=== PATIENT | male | born 1930 | race Caucasian/White ===

== ENCOUNTER 2016-08-08 09:58 | Outpatient (RCR) | payer MEDICARE, BC ==
[2016-08-01 14:18] LABS: BASOPHILS # (AUTO) 0.1 10^3/uL (0.0-0.1); BASOPHILS % (AUTO) 1 % (0-10); EOSINOPHILS # (AUTO) 0.1 10^3/uL (0.0-0.3); EOSINOPHILS % (AUTO) 1 % (0-10); LYMPHOCYTES # (AUTO) 1.4 X 10^3 (1.0-4.0); LYMPHOCYTES % (AUTO) 22 % (12-44); MEAN CORPUSCULAR HEMOGLOBIN 33 PG (25-34); MEAN CORPUSCULAR HGB CONC 34 G/DL (32-36); MEAN CORPUSCULAR VOLUME 95 FL (80-99); MEAN PLATELET VOLUME 10.3 FL (7.4-10.4); MONOCYTES # (AUTO) 0.8 X 10^3 (0.0-1.0); MONOCYTES % (AUTO) 12 % (0-12); NEUTROPHILS % (AUTO) 64 % (42-75); PLATELET COUNT 120 10^3/uL (130-400); RED BLOOD COUNT 4.05 10^6/uL (4.35-5.85); WHITE BLOOD COUNT 6.2 10^3/uL (4.3-11.0)
[2016-08-01 15:30] LABS: ALANINE AMINOTRANSFERASE 13 U/L (0-55); ALBUMIN 4.3 G/DL (3.2-4.5); ANION GAP 7 MMOL/L (5-14); ASPARTATE AMINO TRANSFERASE 22 U/L (5-34); BLOOD UREA NITROGEN 19 MG/DL (7-18); BUN/CREATININE RATIO 18; CALCIUM 9.3 MG/DL (8.5-10.1); CARBON DIOXIDE 28 MMOL/L (21-32); CHLORIDE 104 MMOL/L (98-107); CREATININE SERUM 1.05 MG/DL (0.60-1.30); GFR ESTIMATED > 60; GLUCOSE 76 MG/DL (70-105); POTASSIUM 3.6 MMOL/L (3.6-5.0); SODIUM 139 MMOL/L (135-145); TOTAL PROTEIN 7.3 G/DL (6.4-8.2)
[~2016-08-08 09:58] MED LIST: AC325T PO; ACHD5005 PO; ASPI-892 PO; CARV3.12 PO; CEFU500T5 PO; CEPH500C PO; CLD600T PO; DIAZ5TAB3 PO; DILT180C PO; FNST5T PO; FRSM20T PO; GLUC10002 PO; GLUC500C2 PO; HYDR-3583 PO; LORA10TA7 PO; MULT-608 PO; WARF7.5T PO; WRF2.5T PO; WRF5T PO
== END 2016-10-30 | disposition home or self-care (01) ==
LOC: ONC 09:58
PROVIDERS: ATTEND Internal Medicine Hematology & Oncology
DX: Z08 Encounter for follow-up examination after completed treatment for malignant neoplasm (principal); Z85.038 Personal history of other malignant neoplasm of large intestine; I48.91 Unspecified atrial fibrillation; I10 Essential (primary) hypertension; E78.5 Hyperlipidemia, unspecified; N40.0 Benign prostatic hyperplasia without lower urinary tract symptoms; Z79.899 Other long term (current) drug therapy
CPT/HCPCS: 36415; 80053; 82378; 85025

== ENCOUNTER 2016-11-07 06:42 | Outpatient (CLI) | payer MEDICARE, BC ==
[~2016-11-07] VITALS: Ht 172.7 cm; Wt 77.1 kg
[2016-11-07] MEDS ORDERED: DOCU100T7 PO (14:39)
== END 2016-11-07 14:45 ==
LOC: PREOP 06:42
PROVIDERS: ATTEND Surgery
DX: Z01.818 Encounter for other preprocedural examination (principal); Z12.11 Encounter for screening for malignant neoplasm of colon

== ENCOUNTER 2016-11-11 09:54 | Day surgery (SDC) | payer MEDICARE, BC ==
[~2016-11-11] VITALS: Ht 172.7 cm; Wt 77.1 kg
[~2016-11-11 09:54] MED LIST changes: +DOCU100T7 PO
[2016-11-11 10:00] VITALS: BP 134/77
[2016-11-11] MEDS ORDERED: MIDAZOLAM 2 MG/2 ML (VERSED) VIAL IVP PRN (10:15)
[2016-11-11] MEDS: NS IV 500 ML 500 ML IV PRN ×2 (11:00→12:03)
--- NOTE | 2016-11-11 11:11 | History & Physicial ---
History of Present Illness History of Present Illness Reason for visit/HPI to undergo surveillance colonoscopy. 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 Date of Admission Date Seen by Provider: Nov 11, 2016 Time Seen by Provider: 11:10 I consulted on this patient on 11/11/16 11:10 Attending Physician Alea Daniel MD Admitting Physician Sharon Puentes DO Consult Allergies and Home Medications Allergies Coded Allergies: meperidine (Verified Allergy, Unknown, 01/10/06) morphine (Verified Allergy, Unknown, 01/10/06) Home Medications Acetaminophen 325 Mg Tablet, 650 MG PO Q4H PRN, (Reported) PRN FOR PAIN Aspirin 81 Mg Tablet.dr, 81 MG PO DAILY, (Reported) Calcium Carbonate/Vitamin D3 1 Tab Tablet, 1 TAB PO DAILY, (Reported) Carvedilol 3.125 Mg Tablet, 3.125 MG PO BID, (Reported) Diltiazem Hcl 180 Mg Cap.sr.24h, 180 MG PO BID, (Reported) Docusate Sodium 100 Mg Tablet, 100 MG PO DAILY, (Reported) Finasteride 5 Mg Tab, 5 MG PO DAILY, (Reported) Furosemide 20 Mg Tab, 20 MG PO DAILY, (Reported) Glucosamine Sulfate 2KCL 1,000 Mg Tablet, 1,000 MG PO DAILY, (Reported) Multivitamins 1 Tab Tablet, 1 TAB PO DAILY, (Reported) Warfarin Sod 2.5 Mg Tab, 7.5 MG PO SAT AND FRI., (Reported) 7.5 mg on fri and friday Warfarin Sodium 5 Mg Tablet, 5 MG PO , (Reported) Past Krzkzpw-Xmxfjd-Hmbmou Hx Patient Social History Employed/Student: retired Alcohol Use: Rarely Uses Recreational Drug Use: No Smoking Status: Never a Smoker Recent Foreign Travel: No Contact w/other who traveled: No Recent Hopitalizations: Yes Recent Infectious Disease Expo: No Immunizations Up To Date Date of Pneumonia Vaccine: Jan 04, 2012 Seasonal Allergies Seasonal Allergies: No Surgeries HX Surgeries: Yes (COLON RESECTION, HERNIA REPAIR, PACEMAKER PLACEMENT) Surgeries: Gallbladder Respiratory Hx Respiratory Disorders: No Cardiovascular Hx Cardiovascular Disorders: Yes (pacemaker) Cardiac Disorders: Irregular Heartbeat Neurological Hx Neurological Disorders: Yes Neurological Disorders: TIA Reproductive System Hx Reproductive Disorders: No Genitourinary Hx Genitourinary Disorders: No Gastrointestinal Hx Gastrointestinal Disorders: Yes (HX COLON CANCER, HERNIA) Musculoskeletal Hx Musculoskeletal Disorders: No Endocrine Hx Endocrine Disorders: No HEENT HX ENT Disorders: Yes (partial denture) Cancer Hx Cancer: Yes Cancer: Colon Psychosocial Hx Psychiatric Problems: No Integumentary HX Skin/Integumentary Disorder: No Blood Transfusions Hx Blood Disorders: No Constitutional: no symptoms reported EENTM: no symptoms reported Respiratory: no symptoms reported Gastrointestinal: no symptoms reported Genitourinary: no symptoms reported Musculoskeletal: joint pain Skin: no symptoms reported Psychiatric/Neurological: No Symptoms Reported Physical Exam Vital Signs Vital Sign - Last 12Hours 11/11/16 10:00 Temp 97.2 Pulse 72 Resp 16 B/P (MAP) 134/77 Pulse Ox 96 O2 Delivery Room Air Capillary Refill : General Appearance: No Apparent Distress HEENT: Normal ENT Inspection Neck: Normal Inspection Respiratory: Lungs Clear Cardiovascular: Regular Rate, Rhythm Gastrointestinal: Non Tender, Soft Rectal: Deferred Back: Normal Inspection Extremity: Normal Inspection Neurologic/Psychiatric: Alert, Oriented x3 Skin: Warm/Dry Assessment/Plan Assessment and Plan previous right hemicolectomy to manage a carcinoma. For surveillance colonoscopy Problems: ALEA DANIEL MD Nov 11, 2016 11:11 am
--- NOTE | 2016-11-11 11:11 | Conscious Sedation/ASA ---
Conscious Sedation Pre-Proced Time Reviewed: 11:11 ASA Class: 2 Airway Mallampati Classification: ([place] appropriate class) I. II. III, IV Lungs Heart ASA score ASA 1: a normal healthy patient ASA 2: a patient with a mild systemic disease (mid diabetes, controlled hypertension, obesity ASA 3: a patient with a severe systemic disease that limits activity (angina , COPD, prior Myocardial infarction) ASA 4: a patient with an incapacitating disease that is a constant threat to life (CHF, renal failure) ASA 5: a moribund patient not expected to survive 24 hrs. (ruptured aneurysm) ASA 6: a declared brain patient whose organs are being harvested. For emergent operations, add the letter E after the classification Grade 1 Sedation Plan: Discussed options with patient/fam Note The patient is an appropriate candidate to undergo the planned procedure, sedation, and anesthesia. The patient immediately re-assessed prior to indication. ALEA PATEL MD Nov 11, 2016 11:11 am
[2016-11-11] MEDS ORDERED: fentaNYL INJECTION 100 MCG/2 ML AMP ONE (11:27)
[2016-11-11] MEDS ORDERED: MIDAZOLAM 2 MG/2 ML (VERSED) VIAL ONE ×3 (11:28)
[2016-11-11] MEDS: fentaNYL INJECTION 100 MCG/2 ML AMP IVP PRN ×2 (11:40→11:45)
[2016-11-11 12:15] VITALS: BP 113/78
--- NOTE | 2016-11-11 12:16 | Endo Procedure Record ---
Endo Procedure Report Date of Procedure Nov 11, 2016 Surgeon (s) ALEA PATEL MD Post Procedure/Op Diagnosis sigmoid diverticulosis Procedure Performed colonoscopy to the ileocolic anastomosis Description of Procedure Anesthesia Type: Conscious Sedation Specimen(s) collected/removed none Description of the Procedure Indication for procedure: This gentleman came in for surveillance colonoscopy. In 1994, he had undergone right hemicolectomy to manage a carcinoma and has remained recurrence free so far. Informed consent was obtained after reviewing the procedure in detail. Description of the procedure: He was placed in left lateral decubitus position and his vital signs were monitored. Conscious sedation was achieved using Versed and fentanyl. Digital rectal examination was unremarkable. The colonoscope was then introduced in the rectum and advanced to the ileocolic anastomosis. The scope was then withdrawn slowly and the mucosa examined in a systematic fashion. Findings: Quite diffuse diverticulosis. No polyps were found. He tolerated the procedure well and was taken back to the nursing area in a stable condition Impression:Surveillance colonoscopy. Previous right colectomy for carcinoma. No recurrence. No polyps. Diffuse diverticulosis. Copies To: TAQUERIA PHELPS XAVIER M MD Nov 11, 2016 12:16 pm
--- NOTE | 2016-11-11 12:17 | Discharge Inst-Simple/Standard ---
Discharge Inst-Standard Discharge Medications New, Converted or Re-Newed RX: Other Patient Instructions/Follow Up Plan of Care/Instructions/FU: follow-up with his primary as needed Activity as Tolerated: Yes Discharge Diet: No Restrictions ALEA PATEL MD Nov 11, 2016 12:17 pm
[2016-11-11 13:10] VITALS: BP 134/80
[2016-11-11 13:23] VITALS: BP 134/80
== END 2016-11-11 13:23 | disposition home or self-care (01) ==
LOC: ENDO 09:54
PROVIDERS: ATTEND Surgery
DX: Z12.11 Encounter for screening for malignant neoplasm of colon (principal); Z85.038 Personal history of other malignant neoplasm of large intestine; K57.30 Diverticulosis of large intestine without perforation or abscess without bleeding; Z98.0 Intestinal bypass and anastomosis status; I49.9 Cardiac arrhythmia, unspecified; Z95.0 Presence of cardiac pacemaker; Z86.73 Personal history of transient ischemic attack (TIA), and cerebral infarction without residual deficits; Z79.01 Long term (current) use of anticoagulants; Z79.899 Other long term (current) drug therapy

== ENCOUNTER → 2017-07-29 | Outpatient (CLI) | payer OTHER ==
[2017-07-29 16:01] LABS: INR 1.7 (0.8-1.4); PROTHROMBIN TIME PATIENT 20.3 SEC (12.2-14.7)
== END ==
LOC: LAB 12:17
PROVIDERS: ATTEND Family Medicine
DX: Z51.81 Encounter for therapeutic drug level monitoring (principal); Z79.01 Long term (current) use of anticoagulants
CPT/HCPCS: 36415; 85610

== ENCOUNTER 2017-08-07 09:45 | Outpatient (RCR) | payer BC, MEDICARE, OTHER ==
[2017-07-29 12:25] LABS: BASOPHILS # (AUTO) 0.1 10^3/uL (0.0-0.1); BASOPHILS % (AUTO) 1 % (0-10); EOSINOPHILS # (AUTO) 0.1 10^3/uL (0.0-0.3); EOSINOPHILS % (AUTO) 1 % (0-10); HEMATOCRIT 38 % (40-54); LYMPHOCYTES % (AUTO) 19 % (12-44); MEAN CORPUSCULAR HEMOGLOBIN 33 PG (25-34); MEAN CORPUSCULAR HGB CONC 34 G/DL (32-36); MEAN CORPUSCULAR VOLUME 96 FL (80-99); MEAN PLATELET VOLUME 10.9 FL (7.4-10.4); MONOCYTES # (AUTO) 0.6 X 10^3 (0.0-1.0); MONOCYTES % (AUTO) 11 % (0-12); NEUTROPHILS # (AUTO) 3.6 X 10^3 (1.8-7.8); NEUTROPHILS % (AUTO) 68 % (42-75); PLATELET COUNT 115 10^3/uL (130-400); RED BLOOD COUNT 3.98 10^6/uL (4.35-5.85); RED CELL DISTRIBUTION WIDTH 14.9 % (10.0-14.5); WHITE BLOOD COUNT 5.4 10^3/uL (4.3-11.0)
[2017-07-29 12:45] LABS: ALANINE AMINOTRANSFERASE 14 U/L (0-55); ALBUMIN 4.2 GM/DL (3.2-4.5); ALKALINE PHOSPHATASE 75 U/L (40-136); BILIRUBIN,TOTAL 1.1 MG/DL (0.1-1.0); BUN/CREATININE RATIO 16; CALCIUM 9.4 MG/DL (8.5-10.1); CARBON DIOXIDE 25 MMOL/L (21-32); CHLORIDE 104 MMOL/L (98-107); CREATININE SERUM 1.02 MG/DL (0.60-1.30); GFR ESTIMATED > 60; GLUCOSE 74 MG/DL (70-105); POTASSIUM 3.8 MMOL/L (3.6-5.0); SODIUM 138 MMOL/L (135-145)
== END 2017-10-27 | disposition home or self-care (01) ==
LOC: ONC 09:45
PROVIDERS: ATTEND Internal Medicine Hematology & Oncology
DX: Z08 Encounter for follow-up examination after completed treatment for malignant neoplasm (principal); Z85.038 Personal history of other malignant neoplasm of large intestine; I48.91 Unspecified atrial fibrillation; I10 Essential (primary) hypertension; E78.5 Hyperlipidemia, unspecified; N40.0 Benign prostatic hyperplasia without lower urinary tract symptoms; Z79.899 Other long term (current) drug therapy
CPT/HCPCS: 36415; 80053; 82378; 85025; 99213

== ENCOUNTER → 2017-12-29 | Outpatient (CLI) | payer MEDICARE, OTHER ==
[~2017-12-29] MED LIST changes: +ACET-2422 PO; +ASPI-983 PO; +CARV3.122 PO; +CEFU500T63 PO; +CHOL10007 PO; +DILT180T9 PO; +FINA5TAB6 PO; +GLUC-219 PO; +HYDR25TA4 PO; +POLY17PO6 PO; +WARF-48 PO
== END ==
LOC: CARD 10:15
PROVIDERS: ATTEND Internal Medicine Cardiovascular Disease
DX: I65.29 Occlusion and stenosis of unspecified carotid artery (principal); E78.5 Hyperlipidemia, unspecified; I10 Essential (primary) hypertension; I48.0 Paroxysmal atrial fibrillation; I49.5 Sick sinus syndrome; I08.3 Combined rheumatic disorders of mitral, aortic and tricuspid valves
CPT/HCPCS: 93306

== ENCOUNTER 2017-12-31 08:46 | Day surgery (SDC) | payer MEDICARE ==
[2017-12-31] VITALS (19 sets, daily range): BP systolic 132–156; BP diastolic 40–72
[~2017-12-31] VITALS: Ht 172.7 cm; Wt 77.1 kg
[~2017-12-31 08:46] MED LIST changes: -ACET-2422 PO; -ASPI-983 PO; -CARV3.122 PO; -CEFU500T63 PO; -CHOL10007 PO; -DILT180T9 PO; -FINA5TAB6 PO; -GLUC-219 PO; -HYDR25TA4 PO; -POLY17PO6 PO; -WARF-48 PO
--- OUTSIDE RECORDS SUMMARY | 2017-12-31 08:52 | XMS REPORT | Continuity of Care Document ---
Author Author [facility] Organization [facility] Address Unknown Phone Unavailable Allergies Active Description Code Type Severity Reaction Onset Reported/Identified Relationship to Patient Clinical Status Yes meperidine [id number] Drug Allergy Unknown N/A 01/10/2006 Yes morphine [id number] Drug Allergy Unknown N/A 01/10/2006 Medications There is no data. Problems Date Dx Coded Attending Type Code Diagnosis Diagnosed By 08/15/2009 Ot 427.31 08/15/2009 Ot 427.81 08/15/2009 Ot V10.05 08/15/2009 Ot V45.01 08/15/2009 Ot V45.72 08/15/2009 Ot V58.61 08/15/2009 Ot V58.69 08/15/2009 Ot V67.2 02/20/2010 Ot 272.4 02/20/2010 Ot 401.9 02/20/2010 Ot 414.00 02/20/2010 Ot 416.8 02/20/2010 Ot 427.31 02/20/2010 Ot 427.81 02/20/2010 Ot 433.10 02/20/2010 Ot 433.30 02/20/2010 Ot V10.05 02/20/2010 Ot V12.54 02/20/2010 Ot V53.31 02/20/2010 Ot V58.61 02/20/2010 Ot V58.66 02/20/2010 Ot V58.69 04/21/2010 Ot 723.1 05/09/2010 Ot 153.9 05/09/2010 Ot 414.00 05/09/2010 Ot 780.79 10/30/2010 Ot 110.8 10/30/2010 Ot 427.31 10/30/2010 Ot 427.81 10/30/2010 Ot V10.05 10/30/2010 Ot V45.01 10/30/2010 Ot V58.61 10/30/2010 Ot V87.41 01/14/2011 Ot 401.9 01/14/2011 Ot 414.00 01/14/2011 Ot 416.8 01/14/2011 Ot 427.31 01/14/2011 Ot 427.81 01/14/2011 Ot 433.10 01/14/2011 Ot 780.79 01/14/2011 Ot 996.01 01/14/2011 Ot V10.05 01/14/2011 Ot V12.54 01/14/2011 Ot V58.61 01/14/2011 Ot V58.66 01/14/2011 Ot V58.69 10/24/2011 Ot 110.8 10/24/2011 Ot 427.31 10/24/2011 Ot 427.81 10/24/2011 Ot V10.05 10/24/2011 Ot V45.01 10/24/2011 Ot V58.61 10/24/2011 Ot V87.41 11/14/2011 Ot 276.51 11/14/2011 Ot 401.9 11/14/2011 Ot 414.01 11/14/2011 Ot 536.2 11/14/2011 Ot 558.9 11/14/2011 Ot 593.9 11/14/2011 Ot 789.09 12/04/2012 ALANA LOGAN MD Ot 211.3 BENIGN NEOPLASM LG BOWEL 12/04/2012 ALANA LOGAN MD Ot 455.0 INT HEMORRHOID W/O COMPL 12/04/2012 ALANA LOGAN MD Ot 562.10 DIVERTICULOSIS COLON (W/O MENT OF HEMORR 12/04/2012 ALANA LOGAN MD Ot V10.05 HX OF COLONIC MALIGNANCY 12/04/2012 ALANA LOGAN MD Ot 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 12/04/2012 ALANA LOGAN MD Ot V45.72 ACQRD ABSENCE INTESTINE - LARGE/SMALL 12/04/2012 ALANA LOGAN MD Ot V76.51 SCREEN MAL NEOP-COLON 11/29/2013 ALEXIS PARRISH APRN Ot 989.5 TOXIC EFFECT VENOM 11/29/2013 ALEXIS PARRISH TAFE REGISTRAR Ot E000.8 OTHER EXTERNAL CAUSE STATUS 11/29/2013 ALEXIS PARRISH TAFE REGISTRAR Ot E849.0 ACCIDENT IN HOME 11/29/2013 ALEXIS PARRISH TAFE REGISTRAR Ot E905.3 HORNET/WASP/BEE STING 07/18/2014 VAZQUEZ LANDAVERDE Ot 272.4 07/18/2014 ALFREDO LANDAVERDETH K Ot 401.9 07/18/2014 MENDES-GITA PA, VAZQUEZ Mendoza Ot 427.31 07/18/2014 MENDES-GITA PA, VAZQUEZ K Ot 433.10 07/20/2014 MENDES-GITA PA, VAZQUEZ K Ot 272.4 07/20/2014 MENDES-GITA PA, VAZQUEZ K Ot 401.9 07/20/2014 MENDES-GITA PA, VAZQUEZ K Ot 427.31 07/20/2014 MENDES-GITA PA, VAZQUEZ K Ot 433.10 08/27/2014 MENDES-GITA PA, VAZQUEZ Mendoza Ot 272.4 08/27/2014 MENDES-GITA PA, VAZQUEZ Mendoza Ot 401.9 08/27/2014 MENDES-GITA PA, VAZQUEZ Mendoza Ot 427.31 08/27/2014 MENDES-GITA PA, VAZQUEZ Mendoza Ot 433.10 09/07/2014 Ot 396.3 09/07/2014 Ot 397.0 09/07/2014 Ot 427.31 09/07/2014 Ot 429.3 09/07/2014 Ot 424.0 09/07/2014 Ot 427.31 09/07/2014 Ot 401.9 09/07/2014 Ot 414.01 09/07/2014 Ot 427.31 09/07/2014 Ot 427.81 09/07/2014 Ot 429.3 09/07/2014 Ot 791.9 09/07/2014 Ot V58.61 09/07/2014 Ot V72.63 09/07/2014 Ot V72.81 09/07/2014 Ot V74.8 09/07/2014 Ot 562.10 09/07/2014 Ot V10.05 09/07/2014 Ot V12.54 09/07/2014 Ot V45.3 09/07/2014 Ot V45.72 09/07/2014 Ot V58.61 09/07/2014 Ot V67.09 09/07/2014 Ot 414.00 09/07/2014 Ot 780.79 09/07/2014 Ot V10.05 09/07/2014 Ot 427.31 09/07/2014 Ot 401.9 09/07/2014 Ot 414.01 09/07/2014 Ot V58.61 09/07/2014 Ot 401.9 09/07/2014 Ot 427.0 09/07/2014 Ot 782.3 09/07/2014 Ot 110.8 09/07/2014 Ot 427.31 09/07/2014 Ot 427.81 09/07/2014 Ot V10.05 09/07/2014 Ot V45.01 09/07/2014 Ot V58.61 09/07/2014 Ot V87.41 09/07/2014 KYLEE, BOBAN N Ot 110.8 09/07/2014 KYLEE, BOBAN N Ot 427.31 09/07/2014 KYLEE, BOBAN N Ot 427.81 09/07/2014 KYLEE, BOBAN N Ot V10.05 09/07/2014 KYLEE, BOBAN N Ot V58.61 09/07/2014 KYLEE, BOBAN N Ot V87.41 09/07/2014 KYLEE, BOBAN N Ot 287.5 09/07/2014 KYLEE, BOBAN N Ot 427.31 09/07/2014 KYLEE, BOBAN N Ot 427.81 09/07/2014 KYLEE, BOBAN N Ot V10.05 09/07/2014 KYLEE, BOBAN N Ot V45.01 09/07/2014 KYLEE, BOBAN N Ot V58.61 09/07/2014 KYLEE, BOBAN N Ot V58.69 09/07/2014 KYLEE, BOBAN N Ot V67.2 09/07/2014 DOREEN COLLADO, ALANA Moran Ot V72.84 09/07/2014 JOSE RODRIGUEZ, VAZQUEZ Mendoza Ot 272.4 09/07/2014 JOSE PA, VAZQUEZ Mendoza Ot 397.0 09/07/2014 JOSE PA, VAZQUEZ K Ot 401.9 09/07/2014 JOSE RODRIGUEZ, VAZQUEZ K Ot 427.31 09/07/2014 JOSE RODRIGUEZ, VAZQUEZ K Ot 427.81 09/07/2014 JOSE RODRIGUEZ, VAZQUEZ K Ot V45.01 09/07/2014 KYLEE, BOBAN N Ot 287.5 09/07/2014 KYLEE, BOBAN N Ot 427.31 09/07/2014 KLYEE, BOBAN N Ot V10.05 09/07/2014 KYLEE, BOBAN N Ot V45.01 09/07/2014 KYLEE, BOBAN N Ot V58.61 09/07/2014 KYLEE, BOBAN N Ot V58.69 09/07/2014 KYLEE, BOBAN N Ot V67.2 09/07/2014 KYLEE, BOBAN N Ot 287.5 09/07/2014 KYLEE, BOBAN N Ot 427.31 09/07/2014 KYLEE, BOBAN N Ot 427.81 09/07/2014 KYLEE, BOBAN N Ot V10.05 09/07/2014 KYLEE, BOBAN N Ot V45.01 09/07/2014 KYLEE, BOBAN N Ot V58.61 09/07/2014 KYLEE, BOBAN N Ot V58.69 09/07/2014 KYLEE, BOBAN N Ot V67.2 09/07/2014 JOSE RODRIGUEZ, VAZQUEZ Mendoza Ot 272.4 09/07/2014 JOSE RODRIGUEZ, VAZQUEZ Mendoza Ot 401.9 09/07/2014 JOSE RODRIGUEZ, VAZQUEZ Mendoza Ot 427.31 09/07/2014 JOSE RODRIGUEZ, VAZQUEZ Mendoza Ot 433.10 09/07/2014 KYLEE, BOBAN N Ot 427.31 09/07/2014 KYLEE, BOBAN N Ot V10.05 09/07/2014 KYLEE, SHERRYAN N Ot V45.01 09/07/2014 KYLEE, SHERRYAN N Ot V58.61 09/07/2014 KYLEE, BOBAN N Ot V58.69 09/07/2014 KYLEE, BOBAN N Ot V67.2 09/08/2014 ORENDER DO, SHARON S Ot 722.52 09/08/2014 ORENDER DO, SHARON S Ot 738.4 09/08/2014 ORENDER DO, SHARON S Ot V57.1 09/14/2014 ORENDER DO, SHARON S Ot 722.52 09/14/2014 ORENDER DO, SHARON S Ot 738.4 09/14/2014 ORENDER DO, SHARON S Ot V57.1 09/20/2014 KYLEE, BOBAN N Ot 427.31 09/20/2014 KYLEE, BOBAN N Ot V10.05 09/20/2014 KYLEE, BOBAN N Ot V45.01 09/20/2014 VONNIE PICHARDO Ot V58.61 09/20/2014 VONNIE PICHARDO Ot V58.69 09/20/2014 VONNIE PICHARDO Ot V67.2 09/26/2014 SHARON PUENTES DO Ot 722.52 LUMB/LUMBOSAC DISC DEGEN 09/26/2014 SHARON PUENTES DO Ot 738.4 ACQ SPONDYLOLISTHESIS 09/26/2014 SHARON PUENTES DO Ot V57.1 PHYSICAL THERAPY NEC 12/23/2014 VAZQUEZ LANDAVERDE Ot 272.4 12/23/2014 VAZQUEZ LANDAVERDE Ot 401.9 12/23/2014 VAZQUEZ LANDAVERDE Ot 427.31 12/23/2014 AVZQUEZ LANDAVERDE Ot 433.10 01/30/2015 ARAVIND COLLADO, DONATO Soto Ot E78.2 01/30/2015 ARAVIND COLLADO, DONATO Soto Ot I10 01/30/2015 ARAVIND COLLADO, DONATO Soto Ot I48.0 01/30/2015 ARAVIND COLLADO, DONATO Soto Ot I49.5 01/30/2015 ARAVIND COLLADO, DONATO Soto Ot I65.23 02/20/2015 ARAVIND COLLADO, DONATO Soto Ot E78.2 02/20/2015 ARAVIND COLLADO, DONATO Soto Ot I10 02/20/2015 ARAVIND COLLADO, DONATO Soto Ot I48.0 02/20/2015 ARAVIND COLLADO, DONATO Soto Ot I49.5 02/20/2015 ARAVIND COLLADO, DONATO Soto Ot I65.23 05/16/2015 VONNIE PICHARDO Ot 427.31 05/16/2015 VONNIE PICHARDO Ot V10.05 05/16/2015 VONNIE PICHARDO Ot V45.01 05/16/2015 VONNIE PICHARDO Ot V58.61 05/16/2015 VONNIE PICHARDO Ot V58.69 05/16/2015 KYLEEVONNIE PIERRE Ot V67.2 06/17/2015 SHARON PUENTES DO Ot G47.33 OBSTRUCTIVE SLEEP APNEA (ADULT) (PEDIATR 06/24/2015 SHARON PUENTES DO Ot G47.33 08/08/2015 FIOR JACKSON BALL MILL MIXER Ot E78.5 HYPERLIPIDEMIA, UNSPECIFIED 08/08/2015 FIOR JACKSON BALL MILL MIXER Ot I10 ESSENTIAL (PRIMARY) HYPERTENSION 08/08/2015 FIOR JACKSON BALL MILL MIXER Ot I48.91 UNSPECIFIED ATRIAL FIBRILLATION 08/08/2015 FIOR JACKSON BALL MILL MIXER Ot N40.0 ENLARGED PROSTATE WITHOUT LOWER URINARY 08/08/2015 JACKSONFIOR Pandya BALL MILL MIXER Ot Z08 ENCNTR FOR FOLLOW-UP EXAM AFTER TRTMT FO 08/08/2015 JACKSONFIOR Pandya BALL MILL MIXER Ot Z79.899 OTHER HALF-WAY (CURRENT) DRUG THERAPY 08/08/2015 JACKSONFIOR Pandya BALL MILL MIXER Ot Z85.038 PERSONAL HISTORY OF MALIGNANT NEOPLASM O 08/17/2015 VONNIE PICHARDO Ot E78.5 HYPERLIPIDEMIA, UNSPECIFIED 08/17/2015 VONNIE PICHARDO N Ot I10 ESSENTIAL (PRIMARY) HYPERTENSION 08/17/2015 VONNIE PICHARDO N Ot I48.91 UNSPECIFIED ATRIAL FIBRILLATION 08/17/2015 VONNIE PICHARDO Ot N40.0 ENLARGED PROSTATE WITHOUT LOWER URINARY 08/17/2015 VONNIE PICHARDO Ot Z08 ENCNTR FOR FOLLOW-UP EXAM AFTER TRTMT FO 08/17/2015 VONNIE PICHARDO N Ot Z79.899 OTHER PATIENT ACCOUNTS CLERK (CURRENT) DRUG THERAPY 08/17/2015 VONNIE PICHARDO N Ot Z85.038 PERSONAL HISTORY OF MALIGNANT NEOPLASM O 09/06/2015 JACKSONFIOR Pandya BALL MILL MIXER Ot E78.5 HYPERLIPIDEMIA, UNSPECIFIED 09/06/2015 JACKSONFIOR Pandya BALL MILL MIXER Ot I10 ESSENTIAL (PRIMARY) HYPERTENSION 09/06/2015 JACKSONFIOR Pandya BALL MILL MIXER Ot I48.91 UNSPECIFIED ATRIAL FIBRILLATION 09/06/2015 JACKSONFIOR Pandya BALL MILL MIXER Ot N40.0 ENLARGED PROSTATE WITHOUT LOWER URINARY 09/06/2015 JACKSONFIOR Pandya BALL MILL MIXER Ot Z08 ENCNTR FOR FOLLOW-UP EXAM AFTER TRTMT FO 09/06/2015 JACKSONFIOR Pandya BALL MILL MIXER Ot Z79.899 OTHER PATIENT ACCOUNTS CLERK (CURRENT) DRUG THERAPY 09/06/2015 JACKSONFIOR Pandya S BALL MILL MIXER Ot Z85.038 PERSONAL HISTORY OF MALIGNANT NEOPLASM O 09/22/2015 FIOR JACKSON BALL MILL MIXER Ot E78.5 HYPERLIPIDEMIA, UNSPECIFIED 09/22/2015 FIOR JACKSON BALL MILL MIXER Ot I10 ESSENTIAL (PRIMARY) HYPERTENSION 09/22/2015 FIOR JACKSON BALL MILL MIXER Ot I48.91 UNSPECIFIED ATRIAL FIBRILLATION 09/22/2015 FIOR JACKSON BALL MILL MIXER Ot N40.0 ENLARGED PROSTATE WITHOUT LOWER URINARY 09/22/2015 FIOR JACKSON BALL MILL MIXER Ot Z08 ENCNTR FOR FOLLOW-UP EXAM AFTER TRTMT FO 09/22/2015 FIOR JACKSON BALL MILL MIXER Ot Z79.899 OTHER PATIENT ACCOUNTS CLERK (CURRENT) DRUG THERAPY 09/22/2015 FIOR JACKSON BALL MILL MIXER Ot Z85.038 PERSONAL HISTORY OF MALIGNANT NEOPLASM O 09/22/2015 KYLEESHERRY PIERREAN N Ot E78.5 HYPERLIPIDEMIA, UNSPECIFIED 09/22/2015 KYLEE, BOBAN N Ot I10 ESSENTIAL (PRIMARY) HYPERTENSION 09/22/2015 KYLEE, BOBAN N Ot I48.91 UNSPECIFIED ATRIAL FIBRILLATION 09/22/2015 KYLEE, BOBAN N Ot N40.0 ENLARGED PROSTATE WITHOUT LOWER URINARY 09/22/2015 KYLEE BOBAN N Ot Z08 ENCNTR FOR FOLLOW-UP EXAM AFTER TRTMT FO 09/22/2015 KYLEE, BOBAN N Ot Z79.899 OTHER PATIENT ACCOUNTS CLERK (CURRENT) DRUG THERAPY 09/22/2015 KYLEE, BOBAN N Ot Z85.038 PERSONAL HISTORY OF MALIGNANT NEOPLASM O 11/01/2015 KYLEE, BOBAN N Ot E78.5 HYPERLIPIDEMIA, UNSPECIFIED 11/01/2015 KYLEE, BOBAN N Ot I10 ESSENTIAL (PRIMARY) HYPERTENSION 11/01/2015 KYLEE, BOBAN N Ot I48.91 UNSPECIFIED ATRIAL FIBRILLATION 11/01/2015 KYLEE, BOBAN N Ot N40.0 ENLARGED PROSTATE WITHOUT LOWER URINARY 11/01/2015 KYLEE, BOBAN N Ot Z08 ENCNTR FOR FOLLOW-UP EXAM AFTER TRTMT FO 11/01/2015 KYLEE, BOBAN N Ot Z79.899 OTHER PATIENT ACCOUNTS CLERK (CURRENT) DRUG THERAPY 11/01/2015 KYLEE BOBAN N Ot Z85.038 PERSONAL HISTORY OF MALIGNANT NEOPLASM O 12/19/2015 VAZQUEZ LANDAVERDE Ot E78.2 MIXED HYPERLIPIDEMIA 12/19/2015 MENDES-GITA PA, VAZQUEZ K Ot I48.0 PAROXYSMAL ATRIAL FIBRILLATION 12/19/2015 MENDES-GITA PA, VAZQUEZ K Ot I49.5 SICK SINUS SYNDROME 12/19/2015 MENDES-GITA PA, VAZQUEZ K Ot 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 09/03/2016 VONNIE PICHARDO Ot E78.5 HYPERLIPIDEMIA, UNSPECIFIED 09/03/2016 VONNIE PICHARDO N Ot I10 ESSENTIAL (PRIMARY) HYPERTENSION 09/03/2016 VONNIE PICHARDO Ot I48.91 UNSPECIFIED ATRIAL FIBRILLATION 09/03/2016 VONNIE PICHARDO Ot N40.0 BENIGN PROSTATIC HYPERPLASIA WITHOUT LOW 09/03/2016 VONNIE PICHARDO Ot Z08 ENCNTR FOR FOLLOW-UP EXAM AFTER TRTMT FO 09/03/2016 VONNIE PICHARDO Ot Z79.899 OTHER HALF-WAY (CURRENT) DRUG THERAPY 09/03/2016 VONNIE PICHARDO Ot Z85.038 PERSONAL HISTORY OF MALIGNANT NEOPLASM O 09/24/2016 VONNIE PICHARDO Ot E78.5 HYPERLIPIDEMIA, UNSPECIFIED 09/24/2016 VONNIE PICHARDO N Ot I10 ESSENTIAL (PRIMARY) HYPERTENSION 09/24/2016 VONNIE PICHARDO N Ot I48.91 UNSPECIFIED ATRIAL FIBRILLATION 09/24/2016 VONNIE PICHARDO N Ot N40.0 BENIGN PROSTATIC HYPERPLASIA WITHOUT LOW 09/24/2016 VONNIE PICHARDO N Ot Z08 ENCNTR FOR FOLLOW-UP EXAM AFTER TRTMT FO 09/24/2016 VONNIE PICHARDO Ot Z79.899 OTHER PATIENT ACCOUNTS CLERK (CURRENT) DRUG THERAPY 09/24/2016 VONNIE PICHARDO Ot Z85.038 PERSONAL HISTORY OF MALIGNANT NEOPLASM O 10/30/2016 VONNIE PICHARDO Ot E78.5 HYPERLIPIDEMIA, UNSPECIFIED 10/30/2016 VONNIE PICHARDO Ot I10 ESSENTIAL (PRIMARY) HYPERTENSION 10/30/2016 VONNIE PICHARDO Ot I48.91 UNSPECIFIED ATRIAL FIBRILLATION 10/30/2016 VONNIE PICHARDO Ot N40.0 BENIGN PROSTATIC HYPERPLASIA WITHOUT LOW 10/30/2016 VONNIE PICHARDO Ot Z08 ENCNTR FOR FOLLOW-UP EXAM AFTER TRTMT FO 10/30/2016 VONNIE PICHARDO Ot Z79.899 OTHER PATIENT ACCOUNTS CLERK (CURRENT) DRUG THERAPY 10/30/2016 VONNIE PICHARDO Rigo Ot Z85.038 PERSONAL HISTORY OF MALIGNANT NEOPLASM O 11/07/2016 ALEA PATEL MD Ot Z01.818 ENCOUNTER FOR OTHER PREPROCEDURAL EXAMIN 11/07/2016 ALEA PATEL MD Ot Z12.11 ENCOUNTER FOR SCREENING FOR MALIGNANT NE 11/07/2016 ALEA PATEL MD Ot Z01.818 ENCOUNTER FOR OTHER PREPROCEDURAL EXAMIN 11/07/2016 ALEA PATEL MD Ot Z12.11 ENCOUNTER FOR SCREENING FOR MALIGNANT NE 11/11/2016 ALEA PATEL MD Ot I49.9 CARDIAC ARRHYTHMIA, UNSPECIFIED 11/11/2016 ALEA PATEL MD, Ot K57.30 DVRTCLOS OF LG INT W/O PERFORATION OR AB 11/11/2016 ALEA PATEL MD Ot Z12.11 ENCOUNTER FOR SCREENING FOR MALIGNANT NE 11/11/2016 ALEA PATEL MD, Ot Z79.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 CLERK (CURRENT) USE OF ANTICOAGULANT 11/11/2016 ALEA PATEL MD, Ot Z79.899 OTHER PATIENT ACCOUNTS CLERK (CURRENT) DRUG THERAPY 11/11/2016 ALEA PATEL MD, Ot Z85.038 PERSONAL HISTORY OF MALIGNANT NEOPLASM O 11/11/2016 ALEA PATEL MD, Ot Z86.73 PRSNL HX OF TIA (TIA), AND CEREB INFRC W 11/11/2016 ALEA PATEL MD, Ot Z95.0 PRESENCE OF CARDIAC PACEMAKER 11/11/2016 JORGE COLLADO, ALEA Cain Ot Z98.0 INTESTINAL BYPASS AND ANASTOMOSIS STATUS 07/29/2017 Ot 110.8 DERMATOPHYTOSIS SITE NEC 07/29/2017 Ot 427.31 ATRIAL FIBRILLATION 07/29/2017 Ot 427.81 SINOATRIAL NODE DYSFUNCT 07/29/2017 Ot V10.05 HX OF COLONIC MALIGNANCY 07/29/2017 Ot V45.01 CARDIAC PACEMAKER IN SITU 07/29/2017 Ot V58.61 ANTICOAGULANTS,LT,CURRENT USE 07/29/2017 Ot V87.41 PERSONAL HISTORY OF ANTINEOPLASTIC CHEMO 07/29/2017 VONNIE PICHARDO N Ot 110.8 DERMATOPHYTOSIS SITE NEC 07/29/2017 KYLEEVONNIE PIERRE N Ot 427.31 ATRIAL FIBRILLATION 07/29/2017 KYLEEVONNIE PIERRE N Ot 427.81 SINOATRIAL NODE DYSFUNCT 07/29/2017 KYLEEVONNIE PIERRE N Ot V10.05 HX OF COLONIC MALIGNANCY 07/29/2017 VONNIE PICHARDO N Ot V58.61 ANTICOAGULANTS,LT,CURRENT USE 07/29/2017 KYLEEVONNIE PIERRE N Ot V87.41 PERSONAL HISTORY OF ANTINEOPLASTIC CHEMO 07/29/2017 VONNIE PICHARDO N Ot 287.5 THROMBOCYTOPENIA NOS 07/29/2017 KYLEEVONNIE PIERRE N Ot 427.31 ATRIAL FIBRILLATION 07/29/2017 KYLEEVONNIE PIERRE N Ot 427.81 SINOATRIAL NODE DYSFUNCT 07/29/2017 KYLEEVONNIE PIERRE N Ot V10.05 HX OF COLONIC MALIGNANCY 07/29/2017 KYLEEVONNIE PIERRE N Ot V45.01 CARDIAC PACEMAKER IN SITU 07/29/2017 VONNIE PICHARDO N Ot V58.61 ANTICOAGULANTS,LT,CURRENT USE 07/29/2017 KYLEEVONNIE N Ot V58.69 OTH MED,LT,CURRENT USE 07/29/2017 KYLEE, BOBBETO N Ot V67.2 CHEMOTHERAPY FOLLOW-UP 07/29/2017 DOREEN COLLADO, ALANA Moran Ot V72.84 EXAM PRE-OPERATIVE NOS 07/29/2017 VAZQUEZ LANDAVERDE Ot 272.4 HYPERLIPIDEMIA NEC/NOS 07/29/2017 VAZQUEZ LANDAVERDE Ot 397.0 TRICUSPID VALVE DISEASE 07/29/2017 VAZQUEZ LANDAVERDE Ot 401.9 HYPERTENSION NOS 07/29/2017 VAZQUEZ LANDAVERDE Ot 427.31 ATRIAL FIBRILLATION 07/29/2017 VAZQUEZ LANDAVERDE Ot 427.81 SINOATRIAL NODE DYSFUNCT 07/29/2017 VAZQUEZ LANDAVERDE Ot V45.01 CARDIAC PACEMAKER IN SITU 07/29/2017 VONNIE PICHARDO N Ot 287.5 THROMBOCYTOPENIA NOS 07/29/2017 KYLEEVONNIE N Ot 427.31 ATRIAL FIBRILLATION 07/29/2017 KYLEE, BOBAN N Ot V10.05 HX OF COLONIC MALIGNANCY 07/29/2017 KYLEE, BOBAN N Ot V45.01 CARDIAC PACEMAKER IN SITU 07/29/2017 KYLEE BOBAN N Ot V58.61 ANTICOAGULANTS,LT,CURRENT USE 07/29/2017 KYLEE, BOBAN N Ot V58.69 OTH MED,LT,CURRENT USE 07/29/2017 KYLEE, BOBAN N Ot V67.2 CHEMOTHERAPY FOLLOW-UP 07/29/2017 KYLEEVONNIE PIERRE N Ot 287.5 THROMBOCYTOPENIA NOS 07/29/2017 KYLEE BOBAN N Ot 427.31 ATRIAL FIBRILLATION 07/29/2017 KYLEE BOBAN N Ot 427.81 SINOATRIAL NODE DYSFUNCT 07/29/2017 KYLEE BOBBETO N Ot V10.05 HX OF COLONIC MALIGNANCY 07/29/2017 KYLEE, BOBAN N Ot V45.01 CARDIAC PACEMAKER IN SITU 07/29/2017 KYLEESHERRYAN N Ot V58.61 ANTICOAGULANTS,LT,CURRENT USE 07/29/2017 KYLEE, BOBAN N Ot V58.69 OTH MED,LT,CURRENT USE 07/29/2017 KYLEE, BOBAN N Ot V67.2 CHEMOTHERAPY FOLLOW-UP 07/29/2017 VAZQUEZ LANDAVERDE Ot 272.4 HYPERLIPIDEMIA NEC/NOS 07/29/2017 VAZQUEZ LANDAVERDE Ot 401.9 HYPERTENSION NOS 07/29/2017 VAZQUEZ LANDAVERDE Ot 427.31 ATRIAL FIBRILLATION 07/29/2017 VAZQUEZ LANDAVERDE Ot 433.10 CAROTID ARTERY OCCLUSION W O CEREBRAL IN 07/29/2017 VONNIE PICHARDO N Ot 427.31 ATRIAL FIBRILLATION 07/29/2017 VONNIE PICHARDO Ot V10.05 HX OF COLONIC MALIGNANCY 07/29/2017 VONNIE PICHARDO Ot V45.01 CARDIAC PACEMAKER IN SITU 07/29/2017 VONNIE PICHARDO Ot V58.61 ANTICOAGULANTS,LT,CURRENT USE 07/29/2017 KYLEE VONNIE Sierra Ot V58.69 OTH MED,LT,CURRENT USE 07/29/2017 KYLEE SHERRYBEOT Rigo Ot V67.2 CHEMOTHERAPY FOLLOW-UP 07/29/2017 DONATO NAZARIO MD, Ot E78.2 MIXED HYPERLIPIDEMIA 07/29/2017 DONATO NAZARIO MD Ot I10 ESSENTIAL (PRIMARY) HYPERTENSION 07/29/2017 DONATO NAZARIO MD, Ot I48.0 PAROXYSMAL ATRIAL FIBRILLATION 07/29/2017 DONATO NAZARIO MD, Ot I49.5 SICK SINUS SYNDROME 07/29/2017 DONATO NAZARIO MD, Ot 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 07/29/2017 FIOR JACKSON Ot E78.5 HYPERLIPIDEMIA, UNSPECIFIED 07/29/2017 FIOR JACKSON BALL MILL MIXER Ot I10 ESSENTIAL (PRIMARY) HYPERTENSION 07/29/2017 FIOR JACKSONP Ot I48.91 UNSPECIFIED ATRIAL FIBRILLATION 07/29/2017 FIOR JACKSONP Ot N40.0 ENLARGED PROSTATE WITHOUT LOWER URINARY 07/29/2017 FIOR JACKSON BALL MILL MIXER Ot Z08 ENCNTR FOR FOLLOW-UP EXAM AFTER TRTMT FO 07/29/2017 FIOR JACKSON [employer] Ot Z79.899 OTHER PATIENT ACCOUNTS CLERK (CURRENT) DRUG THERAPY 07/29/2017 FIOR JACKSON [employer] Ot Z85.038 PERSONAL HISTORY OF MALIGNANT NEOPLASM O 07/29/2017 VAZQUEZ LANDAVERDE Ot E78.2 MIXED HYPERLIPIDEMIA 07/29/2017 VAZQUEZ LANDAVERDE Ot I48.0 PAROXYSMAL ATRIAL FIBRILLATION 07/29/2017 VAZQUEZ LANDAVERDE Ot I49.5 SICK SINUS SYNDROME 07/29/2017 VAZQUEZ LANDAVERDE Ot 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 07/29/2017 VONNIE PICHARDO Ot E78.5 HYPERLIPIDEMIA, UNSPECIFIED 07/29/2017 KYLEE, BOBAN N Ot I10 ESSENTIAL (PRIMARY) HYPERTENSION 07/29/2017 KYLEEVONNIE N Ot I48.91 UNSPECIFIED ATRIAL FIBRILLATION 07/29/2017 KYLEEVONNIE PIERRE N Ot N40.0 BENIGN PROSTATIC HYPERPLASIA WITHOUT LOW 07/29/2017 KYLEEVONNIE N Ot Z08 ENCNTR FOR FOLLOW-UP EXAM AFTER TRTMT FO 07/29/2017 VONNIE PICHARDO N Ot Z79.899 OTHER HALF-WAY (CURRENT) DRUG THERAPY 07/29/2017 VONNIE PICHARDO N Ot Z85.038 PERSONAL HISTORY OF MALIGNANT NEOPLASM O 07/29/2017 KYLEEVONNIE PIERRE N Ot E78.5 HYPERLIPIDEMIA, UNSPECIFIED 07/29/2017 KYLEE, BOBBETO N Ot I10 ESSENTIAL (PRIMARY) HYPERTENSION 07/29/2017 KYLEE, BOBBETO N Ot I48.91 UNSPECIFIED ATRIAL FIBRILLATION 07/29/2017 KYLEEVONNIE PIERRE N Ot N40.0 BENIGN PROSTATIC HYPERPLASIA WITHOUT LOW 07/29/2017 KYLEE SHERRYBETO N Ot Z08 ENCNTR FOR FOLLOW-UP EXAM AFTER TRTMT FO 07/29/2017 VONNIE PICHARDO N Ot Z79.899 OTHER HALF-WAY (CURRENT) DRUG THERAPY 07/29/2017 VONNIE PICHARDO N Ot Z85.038 PERSONAL HISTORY OF MALIGNANT NEOPLASM O 07/31/2017 ORENDER DO, SHARON S Ot Z51.81 ENCOUNTER FOR THERAPEUTIC DRUG LEVEL MON 07/31/2017 ORENDER DO, SHARON S Ot Z79.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 CLERK (CURRENT) USE OF ANTICOAGULANT 08/08/2017 ORENDER DO, SHARON S Ot Z51.81 ENCOUNTER FOR THERAPEUTIC DRUG LEVEL MON 08/08/2017 ORENDER DO, SHARON S Ot Z79.01 HALF-WAY (CURRENT) USE OF ANTICOAGULANT 09/10/2017 VONNIE PICHARDO N Ot E78.5 HYPERLIPIDEMIA, UNSPECIFIED 09/10/2017 KYLEE, BOBBETO N Ot I10 ESSENTIAL (PRIMARY) HYPERTENSION 09/10/2017 KYLEE, BOBBETO N Ot I48.91 UNSPECIFIED ATRIAL FIBRILLATION 09/10/2017 KYLEE BOBBETO N Ot N40.0 BENIGN PROSTATIC HYPERPLASIA WITHOUT LOW 09/10/2017 KYLEE BOBBETO N Ot Z08 ENCNTR FOR FOLLOW-UP EXAM AFTER TRTMT FO 09/10/2017 KYLEESHERRYBETO N Ot Z79.899 OTHER PATIENT ACCOUNTS CLERK (CURRENT) DRUG THERAPY 09/10/2017 KYLEE, BOBAN N Ot Z85.038 PERSONAL HISTORY OF MALIGNANT NEOPLASM O 10/10/2017 KYLEE, BOBAN N Ot E78.5 HYPERLIPIDEMIA, UNSPECIFIED 10/10/2017 KYLEE, BOBAN N Ot I10 ESSENTIAL (PRIMARY) HYPERTENSION 10/10/2017 KYLEE, BOBAN N Ot I48.91 UNSPECIFIED ATRIAL FIBRILLATION 10/10/2017 KYLEE, BOBAN N Ot N40.0 BENIGN PROSTATIC HYPERPLASIA WITHOUT LOW 10/10/2017 KYLEE, BOBAN N Ot Z08 ENCNTR FOR FOLLOW-UP EXAM AFTER TRTMT FO 10/10/2017 KYLEE, BOBAN N Ot Z79.899 OTHER PATIENT ACCOUNTS CLERK (CURRENT) DRUG THERAPY 10/10/2017 KYLEE, BOBAN N Ot Z85.038 PERSONAL HISTORY OF MALIGNANT NEOPLASM O 10/27/2017 KYLEE, BOBAN N Ot E78.5 HYPERLIPIDEMIA, UNSPECIFIED 10/27/2017 KYLEE, BOBAN N Ot I10 ESSENTIAL (PRIMARY) HYPERTENSION 10/27/2017 KYLEE, BOBAN N Ot I48.91 UNSPECIFIED ATRIAL FIBRILLATION 10/27/2017 KYLEE, BOBAN N Ot N40.0 BENIGN PROSTATIC HYPERPLASIA WITHOUT LOW 10/27/2017 KYLEE, BOBAN N Ot Z08 ENCNTR FOR FOLLOW-UP EXAM AFTER TRTMT FO 10/27/2017 KYLEE, BOBAN N Ot Z79.899 OTHER PATIENT ACCOUNTS CLERK (CURRENT) DRUG THERAPY 10/27/2017 KYLEE, BOBAN N Ot Z85.038 PERSONAL HISTORY OF MALIGNANT NEOPLASM O 10/28/2017 KYLEE, BOBAN N Ot E78.5 HYPERLIPIDEMIA, UNSPECIFIED 10/28/2017 KYLEE, BOBAN N Ot I10 ESSENTIAL (PRIMARY) HYPERTENSION 10/28/2017 KYLEE, BOBAN N Ot I48.91 UNSPECIFIED ATRIAL FIBRILLATION 10/28/2017 KYLEE, BOBAN N Ot N40.0 BENIGN PROSTATIC HYPERPLASIA WITHOUT LOW 10/28/2017 KYLEE, BOBAN N Ot Z08 ENCNTR FOR FOLLOW-UP EXAM AFTER TRTMT FO 10/28/2017 KYLEE, BOBAN N Ot Z79.899 OTHER PATIENT ACCOUNTS CLERK (CURRENT) DRUG THERAPY 10/28/2017 KYLEE, BOBAN N Ot Z85.038 PERSONAL HISTORY OF MALIGNANT NEOPLASM O Procedures There is no data. Results Test Result Range PT panel in platelet poor plasma by coagulation assay - 07/29/17 12:08 Prothrombin time (PT) in platelet poor plasma by coagulation assay 20.3 s 12.2-14.7 INR in platelet poor plasma or blood by coagulation assay 1.7 0.8-1.4 Encounters ACCT No. Visit Date/Time Discharge Status Pt. Type Provider Facility Loc./Unit Complaint [id number] 10/28/2017 00:09:00 10/28/2017 23:59:59 CLS Preadmit VONNIE PICHARDO [facility] ONC [id number] 08/07/2017 09:45:00 10/27/2017 00:01:00 DIS Outpatient VONNIE PICHARDO [facility] ONC [id number] 07/29/2017 12:17:00 07/29/2017 23:59:59 CLS Outpatient SHARON PUENTES DO S [facility] LAB [id number] 11/11/2016 09:54:00 11/11/2016 13:23:00 DIS Outpatient ALEA PATEL MD [facility] ENDO HX COLON CANCER [id number] 11/07/2016 06:42:00 11/07/2016 14:45:00 DIS Outpatient ALEA PATEL MD [facility] PREOP COLON CANCER [id number] 08/08/2016 09:58:00 10/30/2016 00:01:00 DIS Outpatient VONNIE PICHARDO [facility] ONC [id number] 12/18/2015 08:45:00 12/18/2015 23:59:59 CLS Outpatient VAZQUEZ LANDAVERDE [facility] CARD SSS,PAF, HYPERLIPIDEMIA [id number] 08/07/2015 10:40:00 11/01/2015 00:01:00 DIS Outpatient VONNIE PICHARDO [facility] ONC [id number] 08/07/2015 09:55:00 08/07/2015 23:59:59 CLS Outpatient FIOR JACKSON [facility] ONC [id number] 06/16/2015 19:50:00 06/17/2015 07:05:00 DIS Outpatient SHARON PUENTES DO S [facility] SLEEP ELSA [id number] 01/25/2015 08:05:00 01/25/2015 23:59:59 CLS Outpatient [facility] [place] CARD YAO,HLP,HTN,PAF,SSS [id number] 09/26/2014 10:41:00 09/26/2014 16:30:00 DIS Outpatient SHARON PUENTES DO S [facility] [place] REHAB LUMBAR DDD; SPONDYLOLESTHESIS [id number] 08/04/2014 10:47:00 08/04/2014 23:59:59 CLS Outpatient VONNIE PICHARDO [facility] ONC [id number] 07/15/2014 13:51:00 07/15/2014 23:59:59 CLS Outpatient VAZQUEZ LANDAVERDE [facility] [place] CARD CAROTID ARTERY STENOSIS HLE HTN PAS [id number] 11/29/2013 19:12:00 11/29/2013 20:13:00 DIS Emergency PARRISHALEXIS TAFE REGISTRAR [facility] ER WASP STING [id number] 08/04/2013 09:00:00 08/04/2013 23:59:59 CLS Outpatient VONNIE PICHARDO [facility] ONC [id number] 08/02/2013 10:31:00 08/02/2013 23:59:59 CLS Outpatient VONNIE PICHARDO [facility] [place] ONC [id number] 03/22/2013 12:49:00 03/22/2013 23:59:59 CLS Outpatient VAZQUEZ LANDAVERDE [facility] [place] CARD YAO,HLP,HTN [id number] 12/04/2012 07:12:00 12/04/2012 10:50:00 DIS Outpatient ALANA LOGAN MD [facility] SDC COLON CANCER [id number] 12/02/2012 08:09:00 12/02/2012 23:59:59 CLS Outpatient ALANA LOGAN MD [facility] PREOP COLON CANCER [id number] 08/06/2012 12:45:00 08/06/2012 23:59:59 CLS Outpatient VONNIE PICHARDO [facility] ONC [id number] 08/03/2012 12:14:00 08/03/2012 23:59:59 CLS Outpatient VONNIE PICHARDO [facility] ONC [id number] 09/07/2014 08:25:00 Document Registration [id number] 09/07/2014 08:25:00 Document Registration [id number] 09/07/2014 08:25:00 Document Registration [id number] 09/07/2014 08:25:00 Document Registration [id number] 09/07/2014 08:25:00 Document Registration [id number] 09/07/2014 08:24:00 Document Registration [id number] 11/14/2011 04:25:00 Document Registration [id number] 10/25/2011 00:00:00 Document Registration [id number] 08/05/2011 09:33:00 Document Registration [id number] 01/24/2011 13:02:00 Document Registration [id number] 01/11/2011 22:42:00 Document Registration [id number] 08/06/2010 10:28:00 Document Registration [id number] 04/21/2010 18:15:00 Document Registration [id number] 02/19/2010 07:22:00 Document Registration [id number] 02/08/2010 09:32:00 Document Registration [id number] 09/25/2009 07:01:00 Document Registration [id number] 08/14/2009 10:51:00 Document Registration [id number] 07/04/2009 07:53:00 Document Registration [id number] 05/16/2009 11:48:00 Document Registration [id number] 05/16/2009 09:19:00 Document Registration 05/201709/30/2017 16:01:40 09/30/2017 23:59:59 CLS Outpatient Sharon Puentes
[2017-12-31] MEDS ORDERED: HEParin (CATH LAB) 1,000 ML IV ONE (08:53)
[2017-12-31] MEDS ORDERED: LIDOCAINE 1% INJ 20 ML 20 ML VIAL ONE (08:53)
[2017-12-31] MEDS ORDERED: NS IV 1000 ML 1,000 ML ONE (08:53)
[2017-12-31] MEDS ORDERED: ceFAZolin 1,000 MG/10 ML (ANCEF) VIAL ONE (09:01)
[2017-12-31] MEDS ORDERED: ceFAZolin 1,000 MG/10 ML (ANCEF) VIAL IV ONE ×2 (09:15→10:00)
--- NOTE | 2017-12-31 09:31 | Diagnostic Imaging Report ---
INDICATION: Pacemaker generator change. TIME OF EXAMINATION: 9:19 AM. COMPARISON: 08/15/2011. FINDINGS: The heart is enlarged but stable. The cardiac pacemaker remains in place. The lungs are clear. There is no pneumothorax. The pulmonary vascularity is normal. No effusion is seen. IMPRESSION: Stable cardiomegaly. No acute cardiopulmonary process is detected. Dictated by: Dictated on workstation # [id number]
[2017-12-31 09:32] LABS: HEMOGLOBIN 12.9 G/DL (13.3-17.7); MEAN PLATELET VOLUME 10.9 FL (7.4-10.4); RED BLOOD COUNT 3.93 10^6/uL (4.35-5.85); RED CELL DISTRIBUTION WIDTH 15.6 % (10.0-14.5)
[2017-12-31 09:46] LABS: INR 1.5 (0.8-1.4)
[2017-12-31] MEDS ORDERED: NS IV 1000 ML 1,000 ML IV ONE (09:50)
[2017-12-31 09:54] LABS: ALANINE AMINOTRANSFERASE 18 U/L (0-55); ALBUMIN 4.4 GM/DL (3.2-4.5); ALKALINE PHOSPHATASE 76 U/L (40-136); BILIRUBIN,TOTAL 1.7 MG/DL (0.1-1.0); BUN/CREATININE RATIO 23; CALCIUM 9.9 MG/DL (8.5-10.1); CARBON DIOXIDE 24 MMOL/L (21-32); CHLORIDE 107 MMOL/L (98-107); CHOLESTEROL 132 MG/DL (< 200); CREATININE SERUM 1.08 MG/DL (0.60-1.30); GFR ESTIMATED > 60; GLUCOSE 110 MG/DL (70-105); HDL CHOLESTEROL 38 MG/DL (40-60); POTASSIUM 3.8 MMOL/L (3.6-5.0); SODIUM 140 MMOL/L (135-145); TOTAL PROTEIN 7.5 GM/DL (6.4-8.2); TRIGLYCERIDES 93 MG/DL (<150); VLDL CHOLESTEROL 19 MG/DL (5-40)
[2017-12-31] MEDS ORDERED: CHOL10007 PO (09:59)
[2017-12-31] MEDS ORDERED: ACET-2422 PO (09:59)
[2017-12-31] MEDS ORDERED: WARF-48 PO ×2 (09:59)
[2017-12-31] MEDS ORDERED: HYDR25TA4 PO (09:59)
[2017-12-31] MEDS ORDERED: DILT180T9 PO (09:59)
[2017-12-31] MEDS ORDERED: GLUC-219 PO (09:59)
[2017-12-31] MEDS ORDERED: ASPI-983 PO (09:59)
[2017-12-31] MEDS ORDERED: POLY17PO6 PO (09:59)
[2017-12-31] MEDS ORDERED: FINA5TAB6 PO (09:59)
[2017-12-31] MEDS ORDERED: CARV3.122 PO (09:59)
[2017-12-31] MEDS ORDERED: BACITRACIN INJECTION 50,000 UNIT, SODIUM CHLORIDE 0.9% IRRIGATIO 500 ML IR ONE ×2 (10:00)
[2017-12-31] MEDS ORDERED: FLU QUADRIvalent (5+ YOA) 2018-2019 (AFLURIA) 0.5 ML IM ONE (10:00)
[2017-12-31] MEDS ORDERED: MIDAZOLAM 5 MG/5 ML (VERSED) VIAL ONE (10:15)
[2017-12-31] MEDS ORDERED: fentaNYL INJECTION 100 MCG/2 ML AMP ONE (10:15)
--- NOTE | 2017-12-31 10:28 | Cardiac Procedure Note-CS/ASA ---
Pre-Procedure Note Pre-Op Procedure Note H&P Reviewed The H&P was reviewed, patient examined and no changes noted. Date H&P Reviewed: Dec 31, 2017 Time H&P Reviewed: 10:28 Conscious Sedation Pre-Proced Time 10:28 ASA Score 3 For ASA 3 and 4: Consider anesthesia and medical clearance. Also, for patients with a history of failed moderate sedation consider anesthesia. Airway Lungs Heart ASA score ASA 1: a normal healthy patient ASA 2: a patient with a mild systemic disease (mid diabetes, controlled hypertension, obesity x ASA 3: a patient with a severe systemic disease that limits activity (angina , COPD, prior Myocardial infarction) ASA 4: a patient with an incapacitating disease that is a constant threat to life (CHF, renal failure) ASA 5: a moribund patient not expected to survive 24 hrs. (ruptured aneurysm) ASA 6: a declared brain patient whose organs are being harvested. For emergent operations, add the letter E after the classification Mallampati Classification Grade 3 Sedation Plan Analgesia, Amnesia, Plan communicated to team members, Discussed options with patient/fam, Discussed risks with patient/fam The patient is an appropriate candidate to undergo the planned procedure, sedation, and anesthesia. The patient immediately re-assessed prior to indication. DONATO NAZARIO MD Dec 31, 2017 10:28
[2017-12-31] MEDS ORDERED: NEO/POLY/BAC (NEOSPORIN) OINT 15 GM TUBE ONE (11:02)
[2017-12-31] MEDS ORDERED: NS IV 1000 ML 1,000 ML IV SCH (11:07)
[2017-12-31] MEDS ORDERED: warFARin 5 MG (COUMADIN) TAB PO SCH ×2 (11:15→18:00)
[2017-12-31] MEDS ORDERED: ACETAMINOPHEN 650 MG PO PRN (11:15)
[2017-12-31] MEDS ORDERED: PATIENT MAY USE OWN MEDS, ALL PO SCH (11:15)
--- NOTE | 2017-12-31 14:10 | OPERATIVE REPORT ---
DATE OF SERVICE: 12/31/2017 PACEMAKER GENERATOR REPLACEMENT REPORT BRIEF HISTORY: The patient is an 87-year-old gentleman with history of severe bradycardia, permanent atrial fibrillation, reached NEHAL. Scheduled for generator replacement. PROCEDURE NOTE: After explaining the procedure to the patient, all pros and cons were explained, all questions were answered. Local anesthesia was applied. Skin incision was made on the right side. The old device was retrieved. The patient had an atrial lead that was capped, it was cleared and resutured in place, then placed in the pocket and the ventricular lead was a Medtronic lead with serial #[id number]. It was tested and appeared to be functioning normally. The old device was removed. A new single chamber pacemaker generator Medtronic Sensia SR with serial #[id number] attached to the lead, placed in the pocket and skin pocket was closed in a sterile fashion. Testing showed good sensing and capture activity. No complication noted. CONCLUSION: 1. Successful single chamber pacemaker generator replacement with no complication. 2. The patient has an atrial lead that was capped and exposed and resutured in place. Not attached to the device. FINAL DIAGNOSES: 1. Severe bradycardia. 2. Chronic atrial fibrillation. 3. Hypertension. 4. Hyperlipidemia. Job ID: [id number] DocumentID: [id number] Dictated Date: 12/31/2017 11:13:29 Radio Repairer Date: 12/31/2017 14:09:35 Dictated By: DONAOT NAZARIO MD
[2017-12-31] MEDS: ceFAZolin INJECTION 1,000 MG in NS (IVPB) 50 ML IV SCH ×2 (15:07→22:13)
[2017-12-31] MEDS: ACETAMINOPHEN 325 MG TABLET PO PRN ×2 (16:11→21:21)
[2017-12-31] MEDS ORDERED: CARVEDILOL 3.125 MG (COREG) TABLET PO SCH (21:00)
[2017-12-31] MEDS ORDERED: NON-FORMULARY MEDICATION 1 EA EA (Carvedilol 3.125 MG) PO SCH (21:00)
[2017-12-31] MEDS: CARVEDILOL 3.125 MG (COREG) TABLET PO SCH (21:22)
[2018-01-01] VITALS (11 sets, daily range): BP systolic 117–141; BP diastolic 35–63
[2018-01-01] MEDS: ceFAZolin INJECTION 1,000 MG in NS (IVPB) 50 ML IV SCH (05:48)
[2018-01-01] MEDS ORDERED: CEFU500T63 PO (06:31)
--- NOTE | 2018-01-01 06:31 | Cardiology Progress Note ---
Subjective Date Seen by Provider: Jan 01, 2018 Time Seen by Provider: 06:29 Subjective/Events-last exam Patient is laying down in bed, having swelling in his shoulder at the site. No discomfort. No chest pain. Pacemaker is functioning well Review of Systems General: No Chills, No Night Sweats, No Fatigue, No Malaise, No Appetite, No Other HEENT: No Head Aches, No Visual Changes, No Eye Pain, No Ear Pain, No Dysphasia , No Sinus Congestion, No Post Nasal Drip, No Sore Throat, No Other Pulmonary: No Dyspnea, No Cough, No Pleuritic Chest Pain, No Other Cardiovascular: No: Chest Pain, Palpitations, Orthopnea, Paroxysmal Noc. Dyspnea, Edema, Lt Headedness, Other Objective-Cardiology Exam Last Set of Vital Signs Vital Signs 12/31/17 01/01/18 11:45 05:00 Temp 97.2 Pulse 60 Resp 20 B/P (MAP) 141/35 (70) Pulse Ox 96 O2 Delivery NIV CPAP O2 Flow Rate 2.00 Capillary Refill : I&O Intake and Output 01/01/18 00:00 Intake Total 240 ml Output Total 0 ml Balance 240 ml Intake Oral 240 ml Output Urine Total 0 ml # Voids 1 General: Alert, Oriented X3, Cooperative HEENT: Atraumatic, PERRLA Neck: Supple, No JVD, No Thyromegaly Lungs: Clear to Auscultation, Normal Air Movement Heart: Regular Rate, Normal S1, Normal S2, No Murmurs Abdomen: Normal Bowel Sounds, Soft, No Tenderness, No Hepatosplenomegaly, No Masses Extremities: No Clubbing, No Cyanosis, No Edema, Normal Pulses, No Tenderness/ Swelling Skin: No Rashes, No Breakdown, No Significant Lesion Neuro: Normal Gait, Normal Speech, Strength at 5/5 X4 Ext, Normal Tone, Sensation Intact Psych/Mental Status: Mental Status NL, Mood NL Results Lab Laboratory Tests 12/31/17 09:26 A/P-Cardiology Admission Diagnosis Complete heart block Atrial fibrillation Hypertension Hyperlipidemia Assessment/Plan Complete heart block, pacemaker dependent, status post generator replacement doing well, swelling around the pacemaker site. Atrial fibrillation, restarted Coumadin. Monitor as an outpatient Hypertension, continue current medications on monitor next Hyperlipidemia DONATO NAZARIO MD Jan 01, 2018 06:31
--- NOTE | 2018-01-01 07:11 | Clinic Account Progress/Dx ---
Clinic Account Progress/Dx DIAGNOSIS: Date Seen by Provider: Jan 01, 2018 Time Seen by Provider: 07:11 Complete heart block Atrial fibrillation Hypertension Hyperlipidemia DONATO NAZARIO MD Jan 01, 2018 07:11
[2018-01-01] MEDS: CARVEDILOL 3.125 MG (COREG) TABLET PO SCH (08:38)
[2018-01-01] MEDS ORDERED: HYDROCHLOROTHIAZIDE 25 MG (HCTZ) TAB PO SCH ×2 (09:00)
[2018-01-01] MEDS ORDERED: ASPIRIN E.C. 81 MG (ECOTRIN) TAB PO SCH ×2 (09:00)
[2018-01-01] MEDS ORDERED: DILTIAZEM 180 MG (CARDIZEM CD) CAP PO SCH ×2 (09:00)
[2018-01-01] MEDS ORDERED: FINASTERIDE (PROSCAR) 5 MG TAB PO SCH ×2 (09:00)
[2018-01-01] MEDS ORDERED: NON-FORMULARY MEDICATION 1 EA EA (Diltiazem HCl (Diltiazem ER) 180 MG) PO SCH (09:00)
[2018-01-01] MEDS ORDERED: NON-FORMULARY MEDICATION 1 EA EA (Hydrochlorothiazide 25 MG) PO SCH (09:00)
[2018-01-02] MEDS ORDERED: warFARin 5 MG (COUMADIN) TAB PO SCH (18:00)
== END 2018-01-01 10:17 | disposition home or self-care (01) ==
LOC: CATH 08:46 → ICU 11:45 → CATH 01-01 10:17
PROVIDERS: ATTEND Internal Medicine Cardiovascular Disease
DX: I44.2 Atrioventricular block, complete (principal); I49.5 Sick sinus syndrome; I48.2 Chronic atrial fibrillation; I10 Essential (primary) hypertension; E78.5 Hyperlipidemia, unspecified; I65.29 Occlusion and stenosis of unspecified carotid artery; I07.1 Rheumatic tricuspid insufficiency; N40.0 Benign prostatic hyperplasia without lower urinary tract symptoms; R73.9 Hyperglycemia, unspecified; I27.20 Pulmonary hypertension, unspecified; Z85.038 Personal history of other malignant neoplasm of large intestine; Z79.01 Long term (current) use of anticoagulants; Z79.899 Other long term (current) drug therapy; Z79.82 Long term (current) use of aspirin
CPT/HCPCS: 33227; 36415; 71045; 80053; 80061; 85027; 85610; 85730; 87081; 93005